=== PATIENT | male | born 1965 | race Caucasian/White ===

== ENCOUNTER 2021-03-22 10:30 | Emergency (ER) | payer MEDICARE, OTHER ==
[~2021-03-22 10:30] MED LIST: ADVAIR 250-501 EACH INH; ALDACTONE25 MG PO; AMLODIPINE BESYL5 MG PO; AMOXICILLIN500 MG PO; AUGMENTIN250 MG PO; AZITHROMYCIN250 MG PO; COREG12.5 MG PO; ISOSORBIDE MONO60 MG PO; LACTINEX1 EACH PO; LIPITOR40 MG PO; NITROSTAT0.4 MG PO; PLAVIX75 MG PO; PREDNISONE10 MG PO; PROAIR HFA8.5 GM INH; RANEXA500 MG PO; SPIRIVA18 MCG INH; ULTRAM50 MG PO
== END 2021-03-22 13:57 | disposition home or self-care (01) ==
LOC: FER 10:30
DX: R10.31 Right lower quadrant pain (principal); R19.03 Right lower quadrant abdominal swelling, mass and lump; I25.10 Atherosclerotic heart disease of native coronary artery without angina pectoris; I10 Essential (primary) hypertension; E11.9 Type 2 diabetes mellitus without complications; F17.210 Nicotine dependence, cigarettes, uncomplicated